=== PATIENT | male | born 1990 | race Asian ===

== ENCOUNTER 2016-06-22 09:36 | Emergency (ER) | payer OTHER ==
[~2016-06-22] VITALS: Ht 166 cm; Wt 80.0 kg
[2016-06-22 09:47] VITALS: BP 126/65; TEMP 98.3
[2016-06-22 11:40] VITALS: PULSE 77
== END 2016-06-22 11:41 | disposition home or self-care (01) ==
LOC: COL.ER 09:36
DX: H65.92 Unspecified nonsuppurative otitis media, left ear (principal); J06.9 Acute upper respiratory infection, unspecified

== ENCOUNTER 2016-12-16 23:09 | Emergency (ER) | payer OTHER ==
[~2016-12-16] VITALS: Ht 167.6 cm; Wt 98.0 kg
[2016-12-16 23:09] VITALS: BP 130/67; TEMP 97.3
[2016-12-17 00:05] VITALS: PULSE 81
== END 2016-12-17 00:05 | disposition home or self-care (01) ==
LOC: COL.ER 23:09
DX: L72.0 Epidermal cyst (principal)